=== PATIENT | female | born 1995 | race Two or more races ===

== ENCOUNTER 2018-04-21 15:16 | Emergency (ER) | payer MEDICAID ==
[~2018-04-21] VITALS: Ht 160 cm; Wt 92.0 kg
[~2018-04-21 15:16] MED LIST: NITR100C6 PO; PHEN-824 PO
[2018-04-21 15:30] VITALS: BP 112/64
[2018-04-21] MEDS ORDERED: METR500T PO (16:29)
[2018-04-21] MEDS ORDERED: FLUC150T PO (16:29)
== END 2018-04-21 16:50 | disposition home or self-care (01) ==
LOC: ER 15:18
DX: T19.2XXA Foreign body in vulva and vagina, initial encounter (principal); N76.0 Acute vaginitis; Z91.010 Allergy to peanuts; Z79.899 Other long term (current) drug therapy; W45.8XXA Other foreign body or object entering through skin, initial encounter; Y93.89 Activity, other specified; Y92.89 Other specified places as the place of occurrence of the external cause; Y99.8 Other external cause status
CPT/HCPCS: 99284

== ENCOUNTER 2018-09-13 21:29 | Emergency (ER) | payer MEDICAID ==
[~2018-09-13] VITALS: Ht 160 cm; Wt 90.9 kg
[2018-09-13] MEDS ORDERED: acetaminophen 325mg tablet PO ONE (22:30)
[2018-09-13] MEDS ORDERED: ibuprofen tablet 400 MG TABLET PO ONE (22:30)
[2018-09-13 23:03] LABS: BASOPHILS % (AUTO) 0.3 % (0-1); EOSINOPHILS # (AUTO) 0.1 X10'3 (0-0.9); EOSINOPHILS % (AUTO) 0.7 % (0-6); HEMATOCRIT 34.7 % (35.0-45.0); HEMOGLOBIN 11.9 g/dl (12.0-16.0); LYMPHOCYTES # (AUTO) 1.9 X10'3 (1.1-4.8); LYMPHOCYTES % (AUTO) 17.1 % (21-51); MEAN CORPUSCULAR HEMOGLOBIN 31.7 PG (27.0-31.0); MEAN CORPUSCULAR HGB CONC 34.2 g/dL (33.0-36.5); MEAN CORPUSCULAR VOLUME 92.8 FL (78-98); MEAN PLATELET VOLUME 8.7 FL (7.4-10.4); MONOCYTES # (AUTO) 0.6 X10'3 (0-0.9); MONOCYTES % (AUTO) 5.7 % (2-12); NEUTROPHILS # (AUTO) 8.3 X10'3 (1.8-7.7); NEUTROPHILS % (AUTO) 76.2 % (42-75); PLATELET COUNT 223 X10'3 (140-440); RED BLOOD COUNT 3.74 X10'6 (4.20-5.60); RED CELL DISTRIBUTION WIDTH 12.9 % (11.5-14.5); WHITE BLOOD COUNT 10.9 X10'3 (4.5-11.0)
[2018-09-14] MEDS ORDERED: dicyclomine 10mg/ml 2ml ampule IM ONE
[2018-09-14 00:31] LABS: CLARITY,URINE CLOUDY (Clear); COLOR,URINE YELLOW (Yellow); GLUCOSE, URINE NEGATIVE (Neg); KETONES,URINE NEGATIVE (Neg); LEUKOCYTE ESTERASE ,URINE SMALL (Neg); OCCULT BLOOD,URINE LARGE (Neg); PROTEIN,URINE NEGATIVE (Neg)
[2018-09-14 00:38] LABS: UA COLLECTION TYPE CLN CATCH MIDSTREAM
[2018-09-14 00:39] LABS: BACTERIA,URINE 4+ /HPF (Neg); NITRITES, URINE POSITIVE (Neg); RBC,URINE 0-2 /HPF (0-2); SQUAMOUS EPITHELIAL CELL,UR FEW /LPF (FEW); WBC,URINE 20-30 /HPF (0-4)
--- NOTE | 2018-09-14 02:33 | NUR ---
NASIMA ESCOBEDO TRIED CONTACTING US WELL BUT NO ANSWER...WAITING FOR A RETURN CALL
[2018-09-14 05:01] VITALS: BP 109/55
[2018-09-14] MEDS ORDERED: IBUP-1984 PO (05:11)
[2018-09-14] MEDS ORDERED: ACET-812 PO (05:11)
== END 2018-09-14 05:25 | disposition home or self-care (01) ==
LOC: ER 21:35
DX: N83.8 Other noninflammatory disorders of ovary, fallopian tube and broad ligament (principal); Z91.010 Allergy to peanuts; Z79.899 Other long term (current) drug therapy
CPT/HCPCS: 36415; 76830; 76856; 81001; 84702; 85025; 86900; 86901; 87088; 87186; 96372; 99284; J0500; 87077

== ENCOUNTER 2020-03-09 04:20 | Emergency (ER) | payer MEDICAID ==
[~2020-03-09] VITALS: Ht 160 cm; Wt 109.0 kg
[~2020-03-09 04:20] MED LIST changes: +ACET-812 PO
[2020-03-09 04:21] VITALS: BP 145/92
[2020-03-09 04:57] LABS: ALANINE AMINOTRANSFERASE 30 U/L (12-78); ALBUMIN 4.1 G/DL (3.4-5.0); ALKALINE PHOSPHATASE 69 IU/L (46-116); ANION GAP 11 (8-16); ASPARTATE AMINO TRANSFERASE 16 U/L (10-37); BILIRUBIN,TOTAL 0.9 MG/DL (0.1-1.0); BLOOD UREA NITROGEN 13 MG/DL (7-18); BUN/CREATININE RATIO 21.7 (6.6-38.0); CALCIUM 8.8 MG/DL (8.5-10.1); CHLORIDE 101 MMOL/L (99-107); GLUCOSE 111 MG/DL (70-104); POTASSIUM 3.8 MMOL/L (3.5-5.1); SODIUM 138 MMOL/L (135-145); TOTAL CARBON DIOXIDE 26.3 MMOL/L (24-32); TOTAL PROTEIN 8.2 G/DL (6.4-8.2); eGFR > 90 ML/MIN
[2020-03-09 05:03] LABS: BETA HCG,QUANTITATIVE < 1.0 mIU/ml
[2020-03-09 05:15] LABS: BASOPHILS % (AUTO) 0.3 % (0-1); EOSINOPHILS # (AUTO) 0.1 X10'3 (0-0.9); EOSINOPHILS % (AUTO) 0.5 % (0-6); HEMATOCRIT 39.5 % (35.0-45.0); HEMOGLOBIN 13.1 g/dl (12.0-16.0); LYMPHOCYTES # (AUTO) 1.4 X10'3 (1.1-4.8); LYMPHOCYTES % (AUTO) 14.8 % (21-51); MEAN CORPUSCULAR HEMOGLOBIN 31.2 PG (27.0-31.0); MEAN CORPUSCULAR HGB CONC 33.3 g/dL (33.0-36.5); MEAN CORPUSCULAR VOLUME 93.6 FL (78-98); MEAN PLATELET VOLUME 9.2 FL (7.4-10.4); MONOCYTES # (AUTO) 0.5 X10'3 (0-0.9); MONOCYTES % (AUTO) 4.9 % (2-12); NEUTROPHILS # (AUTO) 7.6 X10'3 (1.8-7.7); NEUTROPHILS % (AUTO) 79.5 % (42-75); PLATELET COUNT 224 X10'3 (140-440); RED BLOOD COUNT 4.21 X10'6 (4.20-5.60); WHITE BLOOD COUNT 9.5 X10'3 (4.5-11.0)
== END 2020-03-09 06:01 ==
LOC: ER 04:21
DX: Z20.828 Contact with and (suspected) exposure to other viral communicable diseases (principal); J45.909 Unspecified asthma, uncomplicated; E11.9 Type 2 diabetes mellitus without complications; F15.90 Other stimulant use, unspecified, uncomplicated; N94.89 Other specified conditions associated with female genital organs and menstrual cycle; Z91.010 Allergy to peanuts; Z79.899 Other long term (current) drug therapy
CPT/HCPCS: 36415; 80053; 84702; 85025; 99283

== ENCOUNTER 2020-10-12 19:56 | Emergency (ER) | payer MEDICAID ==
[~2020-10-12] VITALS: Ht 160 cm; Wt 101.4 kg
[2020-10-12 22:03] VITALS: BP 164/76
== END 2020-10-12 22:06 | disposition home or self-care (01) ==
LOC: ER 19:57
DX: T19.2XXA Foreign body in vulva and vagina, initial encounter (principal); R10.30 Lower abdominal pain, unspecified; N89.8 Other specified noninflammatory disorders of vagina; J45.909 Unspecified asthma, uncomplicated; E11.9 Type 2 diabetes mellitus without complications; F17.200 Nicotine dependence, unspecified, uncomplicated; Z91.010 Allergy to peanuts; Z79.899 Other long term (current) drug therapy; X58.XXXA Exposure to other specified factors, initial encounter; Y93.89 Activity, other specified; Y92.89 Other specified places as the place of occurrence of the external cause; Y99.8 Other external cause status
CPT/HCPCS: 99284

== ENCOUNTER 2021-10-15 13:12 | Emergency (ER) | payer MEDICAID ==
[~2021-10-15] VITALS: Ht 160 cm; Wt 90.9 kg
[2021-10-15 13:54] VITALS: BP 144/61
== END 2021-10-15 14:54 | disposition left against medical advice (07) ==
LOC: ER 13:13
DX: O62.9 Abnormality of forces of labor, unspecified (principal); Z3A.20 20 weeks gestation of pregnancy; Z53.21 Procedure and treatment not carried out due to patient leaving prior to being seen by health care provider

== ENCOUNTER 2025-01-01 09:25 | Outpatient (CLI) | payer MEDICAID ==
--- NOTE | 2025-01-01 14:16 | RADIOLOGY REPORT ---
CT CTA NECK W/ IV CONTRAST INDICATION: ASPHYX D/T MECH THREAT TO BREATHE D/T OTH CAUSE, ASSLT, INIT TECHNIQUE: Volumetric multi-detector CT images of the head were obtained without administration of IV contrast.. CT angiography along with MIP and MPR images were obtained of the [place] of [place] arteries. CT angiography along with MIP and MPR images were obtained of the cervical carotid and vertebral arteries. All CT scans at this facility use dose modulation, iterative reconstruction, and/or weight based dosing when appropriate to reduce radiation dose to as low as reasonably achievable. 3-D postprocessing was performed on a separate workstation under radiologist supervision. IV CONTRAST: 100 mL of low osmolar intravenous iodinated contrast material was administered. COMPARISON: None FINDINGS: ANTERIOR CIRCULATION: Distal internal carotid arteries including the petrous, cavernous, and supraclinoid segments are patent bilaterally. Anterior cerebral arteries including the A1 and A2 segments are patent bilaterally. Anterior communicating artery patent without aneurysm formation. Middle cerebral arteries including the horizontal M1 and sylvian M2 are patent bilaterally. Congenitally absent versus hypoplastic posterior communicating arteries. POSTERIOR CIRCULATION: Posterior cerebral arteries are patent bilaterally. Vertebral arteries are codominant The intracranial segments of the vertebral arteries are patent bilaterally. The basilar artery is patent without aneurysm formation. The posterior inferior cerebellar arteries are patent bilaterally. CERVICAL VESSELS: The thoracic aortic arch is patent without evidence of aneurysmal dilatation or dissection. The right common carotid artery, carotid bulb, and cervical segment of the right internal carotid artery are patent The left common carotid artery, carotid bulb, and cervical segment of the left internal carotid artery are patent The cervical segments of the vertebral arteries are patent OTHER: The lung apices are clear. IMPRESSION: 1. No large vessel occlusion, aneurysmal dilatation, or dissection seen within the intracranial or cervical vessels.
== END 2025-01-01 23:59 | disposition home or self-care (01) ==
LOC: RAD 09:25
PROVIDERS: ATTEND Student in an Organized Health Care Education/Training Program
DX: T71.193A Asphyxiation due to mechanical threat to breathing due to other causes, assault, initial encounter (principal); X58.XXXA Exposure to other specified factors, initial encounter; Y93.89 Activity, other specified; Y92.89 Other specified places as the place of occurrence of the external cause; Y99.8 Other external cause status
CPT/HCPCS: 70498; Q9967

== ENCOUNTER 2025-01-05 04:01 | Emergency (ER) | payer MEDICAID ==
[~2025-01-05] VITALS: Ht 160 cm; Wt 115.8 kg
[2025-01-05 04:03] VITALS: TEMP 97.7
--- NOTE | 2025-01-05 06:49 | Physician Documentation ---
History of Present Illness ~ Chief Complaint: Constipation Stated Complaint: STOMACH PAINS Time Seen by MD: 06:40 HPI 29 yof h/o dm2, remote bowel obstruction s/p bowel resection, c/s x 4, ovarian mass resection p/w no bm x 7 days. Passing gas. abdominal pain with eating last night x 1 episode. RUQ in location. Resolved shortly after. No pain today. No fevers. No nausea or vomiting. Medication Reconciliation Allergies: Coded Allergies: peanut (Verified Allergy, Unknown, 10/15/21) Scheduled Acetaminophen (Tylenol Extra Strength), 2 TABLET PO Q6H Nitrofurantoin Monohyd/M-Cryst (Macrobid 100 mg Capsule), 1 CAP PO Q12H Phenazopyridine HCl (Pyridium), 1 TAB PO Q8H Past Medical History Past Medical History: Asthma, Diabetes Past Surgical History: no surgical history Alcohol Use: None Drug Use: none Lives with: Spouse Lives In: Home Review of Systems All Other Systems at this time: Reviewed and Negative Physical Exam Vital Signs: Temperature: 97.7, Source: Oral, Heart Rate: 91, Respiratory Rate: 16, BP: 126/69, Pulse Oximetry: 99, Weight: 115.800 Physical Exam well appearing no distress moist mucous membranes breathing comfortably awake alert oriented abdomen soft non tender skin warm well perfused Progress Results/Orders Results/Orders Completed Orders - DENISE CHRISTIANSON MD Polyethylene Glycol 3350 Pkt (Miralax Pa (01/05/25 07:05) Bisacodyl Suppository (Dulcolax Supposit (01/05/25 07:02) Magnesium Hydrox Oral Susp. (Milk Of Mag (01/05/25 07:05) Docusate Sod Capsule (Colace Capsule) (01/05/25 07:05) Medications Received in ER Medications (Trade) Dose Ordered Sig/[place] Route PRN Reason Start Time Stop Time Status Last Admin Dose Admin (Miralax packet) 17 gm ONCE ONCE PO 01/05/25 07:05 01/05/25 07:11 DC 01/05/25 08:15 17 GM (Dulcolax suppository) 10 mg ONCE STAT RC 01/05/25 07:02 01/05/25 07:11 DC 01/05/25 08:15 10 MG (milk of magnesia oral suspension) 30 ml ONCE ONCE PO 01/05/25 07:05 01/05/25 07:11 DC 01/05/25 08:15 30 ML (Colace capsule) 100 mg ONCE ONCE PO 01/05/25 07:05 01/05/25 07:11 DC 01/05/25 08:15 100 MG Vital Signs 01/05/25 01/05/25 01/05/25 04:03 08:00 08:28 Temp 97.7 Pulse 91 65 Resp 16 18 18 B/P (MAP) 126/69 117/65 Pulse Ox 99 98 Medical Decision Making Diff Dx GI Bleed:Consideration: Include: Other Diff Dx Pain:Considerations: Include: Other Diff Dx N/V/D:Considerations: Include: Other Diff Dx Rectal:Considerations: Include: Other Additional Comments 29 yof p/w constipation. She does have remote history of bowel obstruction and resection. Today though she has no abdominal pain or tenderness. No nausea or vomiting. Passing gas. Aggressive bowel reg started plan for return if worsening or n/v or abdominal pain. Departure Disposition: 01 HOME / SELF CARE / HOMELESS Impression: Primary Impression: Constipation Qualified Codes: K59.01 - Slow transit constipation Additional Instructions: Please start taking mirlax 17g (1 tablespoon daily). Add docusate sodium tablets as well. You may also try an enema which is available over the counter. Return for abdominal pain, nausea and vomiting. Referrals: NO PRIMARY CARE PROVIDER (PCP) Signature Scribe Signature: na Attestation: DENISE Diaz MD Jan 05, 2025 06:49
[2025-01-05] MEDS: polyethylene glycol 3350 17gm powd pack PO ONE (08:15)
[2025-01-05] MEDS: bisacodyl 10mg suppository rectal RC STA (08:15)
[2025-01-05] MEDS: magnesium hydroxide 30ml (MOM) UD suspension PO ONE (08:15)
[2025-01-05] MEDS: docusate sod 100mg capsule PO ONE (08:15)
[2025-01-05 08:28] VITALS: BP 117/65; PULSE 65; RESP 18; O2SAT 98
== END 2025-01-05 08:37 | disposition home or self-care (01) ==
LOC: ER 04:02
DX: K59.00 Constipation, unspecified (principal); J45.909 Unspecified asthma, uncomplicated; E11.9 Type 2 diabetes mellitus without complications; Z91.010 Allergy to peanuts; Z90.49 Acquired absence of other specified parts of digestive tract
CPT/HCPCS: 99284

== ENCOUNTER 2025-01-14 11:55 | Emergency (ER) | payer MEDICAID ==
[~2025-01-14] VITALS: Ht 160 cm; Wt 117.8 kg
[2025-01-14 12:06] VITALS: BP 118/70; PULSE 72; RESP 19; O2SAT 98
--- NOTE | 2025-01-14 12:36 | RADIOLOGY REPORT ---
CLINICAL INDICATION: FOOT PAIN TECHNIQUE: 3 views of the right foot were performed. DI FOOT, COMPLETE (3VW MIN) Comparison: None FINDINGS/IMPRESSION: No acute fracture or dislocation of the right foot.
--- NOTE | 2025-01-14 13:01 | Physician Documentation ---
History of Present Illness ~ Chief Complaint: Foot pain Stated Complaint: R FOOT PAIN Time Seen by MD: 12:15 HPI 29-year-old female who presents to the emergency department for evaluation of right foot pain. Reports on Sunday she kicked an object and frustration and since that time has had an antalgic gait. Mild swelling without deformity. Noted mild antalgic gait. Patient is a resident of a local rehab center and reports that she is required to do excessive walking. Tetanus witin 5 years: No Medication Reconciliation Allergies: Coded Allergies: peanut (Verified Allergy, Unknown, 01/14/25) Scheduled Acetaminophen (Tylenol Extra Strength), 2 TABLET PO Q6H Nitrofurantoin Monohyd/M-Cryst (Macrobid 100 mg Capsule), 1 CAP PO Q12H Phenazopyridine HCl (Pyridium), 1 TAB PO Q8H Past Medical History Past Medical History: Asthma, Diabetes Past Surgical History: no surgical history Alcohol Use: None Drug Use: none Lives with: Spouse Lives In: Home Review of Systems All Other Systems at this time: Reviewed and Negative Musculoskeletal: Reports: see HPI Physical Exam Vital Signs: RN Vital Signs have been reviewed: Yes, Temperature: 98.3, Source: Oral, Heart Rate: 72, Respiratory Rate: 19, BP: 118/70, Pulse Oximetry: 98, Weight: 117.800 Oxygen Flow Rate: 0 General Appearance: alert, WD/WN, mild distress Head: normal inspection Respiratory: no respiratory distress Chest: no accessory muscle use Cardiovascular: normal peripheral pulses Legs: normal inspection Feet: limited ROM (Right forefoot) Distal Function: no motor deficit, no sensory deficit Skin: normal color Neurologic: oriented x4 Psychiatric: normal mood/affect Progress Results/Orders Results/Orders Vital Signs 01/14/25 12:06 Temp 98.3 Pulse 72 Resp 19 B/P (MAP) 118/70 Pulse Ox 98 O2 Flow Rate 0 Medical Decision Making Additional information obtaine: N/A Findings Examination history warrants x-ray imaging to evaluate for fracture or dislocation or other unforeseen pathologies. X-ray imaging reassuring as provided by the radiologist. Patient is discharged in the emergency department with instructions to advance her activity slowly. She has been provided a note in hopes at the halfway we will limit excessive ambulation for her. She has declined needing medicinal therapy. Safely discharged in the emergency department. General Diff Dx:Considerations: Include: Contusion, Fracture, Hematoma, Neurovascular injury Knee Diff Dx:Considerations: Include: Other Ankle Diff Dx:Considerations: Include: Other Foot Diff Dx:Considerations: Include: Other (Noncontributory) Toe Diff Dx:Considerations: Include: Abrasion, Contusion, Dislocation, Fracture, Hematoma Departure Disposition: HOME / SELF CARE / HOMELESS Impression: Primary Impression: Foot contusion Qualified Codes: S90.31XA - Contusion of right foot, initial encounter Condition: Improved Discharge Instructions: Sprains Additional Instructions: Your x-rays obtained today in the emergency department reassuring for no fracture. You have a foot contusion that requires time to heal. Please ask your program to excuse you from excessive walking. Thank you for visiting emergency department [facility]. Referrals: NO PRIMARY CARE PROVIDER (PCP) Education Educated: Patient Educated regarding: diagnosis, treatment, prognosis, need for follow up Signature Scribe Signature: . Attestation: . DANETTE SPENCE PAC Jan 14, 2025 13:01
[2025-01-14 14:04] VITALS: TEMP 98.3
== END 2025-01-14 14:06 | disposition home or self-care (01) ==
LOC: ER 11:56
DX: S90.31XA Contusion of right foot, initial encounter (principal); J45.909 Unspecified asthma, uncomplicated; E11.9 Type 2 diabetes mellitus without complications; Z91.010 Allergy to peanuts; Z79.899 Other long term (current) drug therapy; X58.XXXA Exposure to other specified factors, initial encounter; Y93.89 Activity, other specified; Y92.89 Other specified places as the place of occurrence of the external cause; Y99.8 Other external cause status
CPT/HCPCS: 73630; 99283